=== PATIENT | male | born 1980 | race Caucasian/White ===

== ENCOUNTER 2019-05-30 06:43 | Emergency (ER) | payer OTHER ==
[~2019-05-30] VITALS: Ht 193 cm; Wt 121.3 kg
[2019-05-30] MEDS ORDERED: WARF-23 PO (06:57)
[2019-05-30] MEDS ORDERED: COUM1TAB14 PO (06:57)
[2019-05-30] MEDS ORDERED: LIPI20TA PO (06:57)
[2019-05-30] MEDS ORDERED: LISI-542 PO (06:57)
[2019-05-30] MEDS ORDERED: ASPI81CH33 PO (06:57)
[2019-05-30 07:13] LABS: BASO # 0.1 10^3/uL (0.0-0.2); BASO % 0.5 % (0.0-1.0); EOS # 0.2 10^3/uL (0.0-0.50); EOS % 1.2 % (0.0-3.0); HEMATOCRIT 52.3 % (42.0-52.0); HEMOGLOBIN 18.3 g/dl (13.5-17.5); LYMPH # 2.8 10^3/uL (1.5-4.5); LYMPH % 22.2 % (24.0-44.0); MEAN CORPUSCULAR HEMOGLOBIN 29.8 pg (27.0-33.0); NEUTROPHILS # 8.4 10^3/uL (1.8-7.7); NEUTROPHILS % 67.7 % (36.0-66.0); PLATELET COUNT, AUTOMATED 284 10^3/uL (150-450); RED BLOOD COUNT 6.15 10^6/uL (4.30-6.10); WHITE BLOOD COUNT 12.5 10^3/uL (4.0-10.0)
[2019-05-30 07:23] LABS: INR 0.97; PROTHROMBIN TIME 12.6 SECONDS (11.8-14.0)
[2019-05-30 07:24] LABS: PARTIAL THROMBOPLASTIN TIME 29.6 SECONDS (25.0-38.4)
[2019-05-30] MEDS ORDERED: ALTEPLASE 100MG INJ (J2997) As Ordered ONE (07:37)
[2019-05-30] MEDS ORDERED: ALTEPLASE RECOMBINANT 81 MG in APPROPRIATE DILUENT 1 EA IV ONE (07:45)
[2019-05-30] MEDS ORDERED: ALTEPLASE 100MG INJ (J2997) IV ONE (07:45)
--- NOTE | 2019-05-30 07:55 | REP ---
Portable chest, 07:25 a.m., single AP view with the patient sitting: There are no comparisons. There are sternotomy wires and cardiomegaly. There is a dual-chamber pacemaker. There is a cardiac valve replacement. Lung mireles are clear. The og, mediastinum, skeletal structures are unremarkable. Impression: Lung mireles are clear. Cardiomegaly, sternotomy wires and dual-chamber pacemaker and cardiac valve replacement. Electronically Signed by Joel Bhatti MD 05/30/2019 07:46 A
[2019-05-30 08:19] LABS: CALCIUM LEVEL 9.4 MG/DL (8.5-10.1); CK-MB VALUE MASS 1.5 NG/ML (<3.6); CREATININE FOR GFR 1.42 MG/DL (0.70-1.30); GLOMERULAR FILTRATION RATE 59.7 (>60); MB/CK RELATIVE INDEX 1.03 (< OR =4); TROPONIN I 0.08 NG/ML (< 0.10)
--- NOTE | 2019-05-30 08:33 | REPVR ---
EXAM: CT Head Without Contrast CRITICAL CALL EXAM DATE/TIME: 05/30/19 (6:52am) CLINICAL HISTORY: 38 year old male. Extremity and facial weakness. TECHNIQUE: Imaging protocol: Axial computed tomography images of the head without contrast. Radiation optimization: All CT scans at this facility use at least one of these dose optimization techniques: automated exposure control; mA and/or kV adjustment per patient size (includes targeted exams where dose is matched to clinical indication); or iterative reconstruction. COMPARISON: No relevant prior studies available FINDINGS: Brain: Focal areas of encephalomalacia in the right occipital and high right frontal regions. No acute hemorrhage. No mass effect. Ventricles: Normal. No ventriculomegaly. Bones/joints: Unremarkable. No acute fracture. Sinuses: Visualized sinuses are unremarkable. No air-fluid levels. Mastoid air cells: Visualized mastoid air cells are well aerated. No mastoid effusion. Soft tissues: Unremarkable. IMPRESSION: No acute intracranial pathology is appreciated. 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 Electronically signed by: Beverly Bills On 05/30/2019 08:33:29 AM
[2019-05-30 09:06] VITALS: BP 166/81
[2019-05-30] MEDS ORDERED: ACETAMINOPHEN 325 MG TAB PO ONE (09:15)
--- NOTE | 2019-05-30 19:13 | ECGEPIP ---
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
== END 2019-05-30 09:14 | disposition short-term general hospital (02) ==
LOC: M ED 06:43
DX: R29.810 Facial weakness (principal); R20.2 Paresthesia of skin; I45.10 Unspecified right bundle-branch block; I25.10 Atherosclerotic heart disease of native coronary artery without angina pectoris; I10 Essential (primary) hypertension; E78.5 Hyperlipidemia, unspecified; Z86.73 Personal history of transient ischemic attack (TIA), and cerebral infarction without residual deficits; Z95.2 Presence of prosthetic heart valve; I51.7 Cardiomegaly; Z95.0 Presence of cardiac pacemaker; Z79.82 Long term (current) use of aspirin; Z79.01 Long term (current) use of anticoagulants; Z79.899 Other long term (current) drug therapy
CPT/HCPCS: 36415; 70450; 71045; 80048; 82550; 82553; 84484; 85025; 85610; 85730; 86850; 86900; 86901; 93005; 93041; 94760; 96365; 99285; J2997

== ENCOUNTER → 2019-08-14 | Outpatient (REF) | payer OTHER ==
[~2019-08-14] MED LIST: AMLO10TA5 PO; ASPI81CH33 PO; ATOR80TA59 PO; COUM1TAB14 PO; LIPI20TA PO; LISI-542 PO; LISI10TA4 PO; LOVE1INJ SC; WARF-23 PO
[2019-08-14 12:29] LABS: INR 1.74; PROTHROMBIN TIME 20.1 SECONDS (11.8-14.0)
== END ==
LOC: M SFHCPLAZ 09:59
PROVIDERS: ATTEND Family Medicine
DX: Z95.2 Presence of prosthetic heart valve (principal)

== ENCOUNTER 2019-09-28 11:36 | Day surgery (SDC) | payer OTHER ==
[~2019-09-28] VITALS: Ht 193 cm; Wt 120.7 kg
[~2019-09-28 11:36] MED LIST changes: -AMLO10TA5 PO; +LR 1,000 ML IV ONE
[2019-09-28 12:22] LABS: INR 0.98; PROTHROMBIN TIME 12.7 SECONDS (11.8-14.0)
[2019-09-28] MEDS ORDERED: ceFAZolin SOD 2 GM in IV 1 EA IV ONE (12:45)
[2019-09-28] MEDS ORDERED: AMLO10TA5 PO (12:57)
[2019-09-28] MEDS ORDERED: LIDOCAINE 2% INJ 100 MG/5 ML SDV (FOR ANES.) As Ordered ONE (14:57)
[2019-09-28] MEDS ORDERED: ONDANSETRON 4MG/2ML VIAL (J2405) As Ordered ONE (14:57)
[2019-09-28] MEDS ORDERED: dexameTHASONE 4 MG/ML 1ML VIAL (J1100) As Ordered ONE (14:57)
[2019-09-28] MEDS ORDERED: PROPOFOL 200 MG/20 ML VIAL As Ordered ONE (14:57)
[2019-09-28] MEDS ORDERED: fentaNYL 100 MCG/2 ML INJECTION (J3010) As Ordered ONE (15:43)
[2019-09-28] MEDS ORDERED: MIDAZOLAM INJ 2 MG/2 ML VIAL (J2250) As Ordered ONE (15:43)
[2019-09-28] MEDS ORDERED: LIDOCAINE 2% W/EPIN INJ 20ML **PRES FREE As Ordered ONE (15:52)
[2019-09-28] MEDS ORDERED: ACETAMINOPHEN 1000MG 100ML IV BTL (OFIRMEV) (J0131 PER 10MG) As Ordered ONE (16:25)
[2019-09-28 17:45] VITALS: BP 161/78
[2019-09-28] MEDS ORDERED: PERCOCET 5MG/325MG TAB PO PRN (17:45)
[2019-09-28] MEDS ORDERED: fentaNYL 100 MCG/2 ML INJECTION (J3010) IV PRN (17:45)
[2019-09-28] MEDS ORDERED: LR 1,000 ML IV SCH (17:45)
[2019-09-28] MEDS ORDERED: ONDANSETRON 4MG/2ML VIAL (J2405) IV PRN (17:45)
--- NOTE | 2019-10-01 09:09 | RO ---
DATE OF SURGERY: 09/28/2019 PREOPERATIVE DIAGNOSIS: Electrosterilization. POSTOPERATIVE DIAGNOSIS: Electrosterilization. PROCEDURE: Bilateral vasectomy. SURGEON: Dr. Trey Christensen OPERATIONS SUPPORT MANAGER: ANESTHESIA: Local with IV sedation. INDICATION FOR OPERATION: This is a 38-year-old white male who presented for elective sterilization. DESCRIPTION OF OPERATION: The patient was placed on the table in supine position and IV sedation was administered. He was then prepped with Betadine paint and draped in a sterile manner. The left vas deferens was then identified and brought up to the skin. 2% lidocaine was then used to anesthetize the skin over the vas and the vas was then secured with a towel clamp. A #15 scalpel was then used to make a skin incision and the vas deferens was brought up through the incision with the aid of a vas clamp. A mosquito clamp was then used to isolate the cord which was then clipped proximally and distally with surgical clips and the intervening portion of the vas deferens was removed using Bovie cautery. The ends of the cords were then oversewn with #3-0 chromic suture and dropped back down into the incision. The incision was then closed with interrupted sutures of #3-0 chromic. The right vas deferens was then isolated to the skin, which was then anesthetized with 2% lidocaine. A towel clamp was then used to secure the vas deferens and a skin incision was made with a #15 scalpel. The vas deferens was then brought up through this incision with a vas clamp and isolated from surrounding tissue with blunt dissection. It was then clipped proximally and distally with surgical clips and section was removed with Bovie cautery. The edge was then oversewn with #3-0 chromic suture and dropped back down into the incision. The incision was then closed with interrupted #3-0 chromic sutures. Both incisions were then dressed with DERMABOND and the patient was awakened and sent to the recovery room in stable condition.
== END 2019-09-28 17:50 | disposition home or self-care (01) ==
LOC: M SDC 11:36
PROVIDERS: ATTEND Urology
DX: Z30.2 Encounter for sterilization (principal); I10 Essential (primary) hypertension; I25.2 Old myocardial infarction; Z95.0 Presence of cardiac pacemaker; Z95.2 Presence of prosthetic heart valve; E78.5 Hyperlipidemia, unspecified; Z79.82 Long term (current) use of aspirin; Z79.01 Long term (current) use of anticoagulants; Z86.73 Personal history of transient ischemic attack (TIA), and cerebral infarction without residual deficits; Z87.891 Personal history of nicotine dependence
CPT/HCPCS: 36415; 55250; 85610; 88302; J0131; J0690; J1100; J2250; J2405; J3010

== ENCOUNTER → 2020-03-04 | Outpatient (REF) | payer OTHER ==
[~2020-03-04] MED LIST changes: +AMLO10TA5 PO; -LR 1,000 ML IV ONE
[2020-03-04 17:27] LABS: BLOOD UREA NITROGEN 19 MG/DL (7-18); CALCIUM LEVEL 9.5 MG/DL (8.5-10.1); CARBON DIOXIDE LEVEL 26 MEQ/L (21-32); CHLORIDE LEVEL 109 MEQ/L (98-107); CREATININE FOR GFR 1.01 MG/DL (0.70-1.30); GLOMERULAR FILTRATION RATE > 60.0 (>60); GLUCOSE, FASTING 111 MG/DL (70-100); POTASSIUM SERUM 4.3 MEQ/L (3.5-5.1); SODIUM LEVEL 141 MEQ/L (136-145)
== END ==
LOC: M SFHCPLAZ 11:31
PROVIDERS: ATTEND Family Medicine
DX: Z79.01 Long term (current) use of anticoagulants (principal); I10 Essential (primary) hypertension

== ENCOUNTER → 2020-09-05 | Outpatient (REF) | payer OTHER ==
[~2020-09-05] MED LIST changes: -AMLO10TA5 PO; +AMLO1TAB25 PO; -COUM1TAB14 PO; +COUM4TAB8 PO
[2020-09-05 13:57] LABS: BLOOD UREA NITROGEN 19 MG/DL (7-18); CALCIUM LEVEL 9.2 MG/DL (8.5-10.1); CARBON DIOXIDE LEVEL 26 MEQ/L (21-32); CHLORIDE LEVEL 108 MEQ/L (98-107); CHOLESTEROL LEVEL 136 MG/DL (<200); CHOLESTEROL RISK RATIO 3.675 (<5); CREATININE FOR GFR 1.13 MG/DL (0.70-1.30); GLOMERULAR FILTRATION RATE > 60.0 (>60); GLUCOSE, FASTING 109 MG/DL (70-100); HDL CHOLESTEROL 37 MG/DL (>40); LDL CHOLESTEROL 83 MG/DL (<100); NON-HDL-C 99 MG/DL; POTASSIUM SERUM 4.6 MEQ/L (3.5-5.1); SODIUM LEVEL 140 MEQ/L (136-145); TRIGLYCERIDES LEVEL 82 MG/DL (<150)
== END ==
LOC: M SFHCPLAZ 11:20
PROVIDERS: ATTEND Family Medicine
DX: E78.2 Mixed hyperlipidemia (principal); I10 Essential (primary) hypertension

== ENCOUNTER → 2021-03-06 | Outpatient (REF) | payer OTHER ==
[~2021-03-06] MED LIST changes: -LISI-542 PO; +LISI-898 PO; +LISI10TA22 PO; -LISI10TA4 PO
[2021-03-06 16:16] LABS: BLOOD UREA NITROGEN 25 MG/DL (7-18); CALCIUM LEVEL 9.8 MG/DL (8.5-10.1); CARBON DIOXIDE LEVEL 26 MEQ/L (21-32); CHLORIDE LEVEL 107 MEQ/L (98-107); CREATININE FOR GFR 1.18 MG/DL (0.70-1.30); GLOMERULAR FILTRATION RATE > 60.0 (>60); GLUCOSE, FASTING 129 MG/DL (70-100); POTASSIUM SERUM 4.2 MEQ/L (3.5-5.1); SODIUM LEVEL 139 MEQ/L (136-145)
== END ==
LOC: M SFHCPLAZ 13:25
PROVIDERS: ATTEND Family Medicine
DX: I10 Essential (primary) hypertension (principal)

== ENCOUNTER → 2021-09-03 | Outpatient (CLI) | payer OTHER ==
[2021-09-03 18:07] LABS: ALBUMIN 4.2 GM/DL (3.2-5.2); ALT/SGPT 54 U/L (12-78); BILIRUBIN,TOTAL 0.8 MG/DL (0.2-1.0); BLOOD UREA NITROGEN 22 MG/DL (7-18); CARBON DIOXIDE LEVEL 24 MEQ/L (21-32); CHLORIDE LEVEL 108 MEQ/L (98-107); CHOLESTEROL LEVEL 160 MG/DL (<200); CHOLESTEROL RISK RATIO 4.324 (<5); CREATININE FOR GFR 1.21 MG/DL (0.70-1.30); GLOMERULAR FILTRATION RATE > 60.0 (>60); GLUCOSE, FASTING 108 MG/DL (70-100); HDL CHOLESTEROL 37 MG/DL (>40); LDL CHOLESTEROL 98 MG/DL (<100); NON-HDL-C 123 MG/DL; POTASSIUM SERUM 4.2 MEQ/L (3.5-5.1); SODIUM LEVEL 139 MEQ/L (136-145); TRIGLYCERIDES LEVEL 127 MG/DL (<150)
== END ==
LOC: M PLALAB 14:25
PROVIDERS: ATTEND Family Medicine
DX: E78.2 Mixed hyperlipidemia (principal)

== ENCOUNTER → 2022-04-14 | Outpatient (CLI) | payer OTHER ==
[~2022-04-14] MED LIST changes: -LISI-898 PO; +LISI5TAB11 PO
[2022-04-14 13:11] LABS: BASO % 0.5 % (0.0-1.0); EOS # 0.1 10^3/uL (0.0-0.5); EOS % 1.8 % (0.0-3.0); HEMATOCRIT 43.6 % (42.0-52.0); HEMOGLOBIN 14.8 g/dl (13.5-17.5); LYMPH # 1.7 10^3/uL (1.5-5.0); LYMPH % 22.1 % (24.0-44.0); MEAN CORPUSCULAR HEMOGLOBIN 29.2 pg (27.0-33.0); MEAN CORPUSCULAR HGB CONC 33.9 g/dl (32.0-36.5); MONO # 0.7 10^3/uL (0.0-0.8); MONO % 8.8 % (2.0-8.0); NEUTROPHILS # 5.3 10^3/uL (1.5-8.5); NEUTROPHILS % 66.5 % (36.0-66.0); PLATELET COUNT, AUTOMATED 228 10^3/uL (150-450); RED BLOOD COUNT 5.07 10^6/uL (4.30-6.10); WHITE BLOOD COUNT 7.9 10^3/uL (4.0-10.0)
[2022-04-14 13:21] LABS: INR 2.4; PROTHROMBIN TIME 26.5 SECONDS (12.7-14.5)
[2022-04-14 13:48] LABS: ALBUMIN 4.4 GM/DL (3.2-5.2); ALT/SGPT 44 U/L (12-78); BILIRUBIN,TOTAL 0.5 MG/DL (0.2-1.0); BLOOD UREA NITROGEN 24 MG/DL (7-18); CALCIUM LEVEL 9.6 MG/DL (8.5-10.1); CARBON DIOXIDE LEVEL 28 MEQ/L (21-32); CHLORIDE LEVEL 109 MEQ/L (98-107); CREATININE FOR GFR 1.25 MG/DL (0.70-1.30); FERRITIN 163 NG/ML (26-388); GLOMERULAR FILTRATION RATE > 60.0 (>60); GLUCOSE, FASTING 107 MG/DL (70-100); IRON (FE) 48 UG/DL (65-175); PERCENT SATURATION 15.7 % (19.7-50.0); POTASSIUM SERUM 4.1 MEQ/L (3.5-5.1); SODIUM LEVEL 143 MEQ/L (136-145); TOTAL IRON BINDING CAPACITY 305 UG/DL (250-450); TOTAL PROTEIN 7.7 GM/DL (6.4-8.2)
[2022-04-14 13:59] LABS: HEPATITIS B SURFACE ANTIGEN NEGATIVE (NEGATIVE)
== END ==
LOC: M PLALAB 12:16
PROVIDERS: ATTEND Family Medicine
DX: I10 Essential (primary) hypertension (principal)
CPT/HCPCS: 36415; 80053; 82728; 83550; 85025; 85610; 86704; 87340; G0472